=== PATIENT | male | born 1970 | race Caucasian/White ===

== ENCOUNTER 2017-08-10 07:00 | Emergency (ER) | payer MEDICARE, OTHER ==
[~2017-08-10] VITALS: Ht 177.8 cm; Wt 102.3 kg
[2017-08-10] MEDS ORDERED: FLOM5CAP PO (07:26)
[2017-08-10] MEDS ORDERED: RANI15TA PO (07:26)
[2017-08-10] MEDS ORDERED: ASPI81TA85 PO (07:26)
[2017-08-10] MEDS ORDERED: SIMV40TA2 PO (07:26)
[2017-08-10] MEDS ORDERED: PROZ10CA7 PO (07:26)
[2017-08-10] MEDS ORDERED: CLAR10CA3 PO (07:26)
[2017-08-10] MEDS ORDERED: PROG1CAP2 PO (07:26)
[2017-08-10] MEDS ORDERED: LISI-538 PO (07:26)
[2017-08-10] MEDS ORDERED: CELL500T PO (07:26)
[2017-08-10] MEDS ORDERED: LEVA1TAB PO (09:03)
[2017-08-10 09:05] VITALS: BP 129/77
== END 2017-08-10 09:16 | disposition home or self-care (01) ==
LOC: M ED 07:00
DX: N30.90 Cystitis, unspecified without hematuria (principal); I10 Essential (primary) hypertension; K21.9 Gastro-esophageal reflux disease without esophagitis; F99 Mental disorder, not otherwise specified; Z79.899 Other long term (current) drug therapy; Z79.82 Long term (current) use of aspirin; Z88.8 Allergy status to other drugs, medicaments and biological substances; Z94.0 Kidney transplant status

== ENCOUNTER → 2017-10-06 | Outpatient (REF) ==
[~2017-10-06] MED LIST: ASPI81TA85 PO; CELL500T PO; CLAR10CA3 PO; FLOM5CAP PO; LEVA1TAB PO; LISI-538 PO; PROG1CAP2 PO; PROZ10CA7 PO; RANI15TA PO; SIMV40TA2 PO
--- NOTE | 2017-10-06 14:33 | REP ---
Clinical: Pain and disability. Technique: AP and lateral views of the right tibia / fibula. Findings: Mild degenerative changes at the knee joint include minimal increased tibial os lordosis and decreased medial tibiofemoral joint space. The patient is status post intramedullary celeste through the tibia for prior distal tibial shaft fracture. Healed fracture of the proximal fibular shaft is also appreciated. Mild degenerative changes at the ankle include spurring along the medial malleolus. Ankle mortise appears intact and normal. Impression: Mild degenerative changes at the knee and ankle. Evidence for old healed fractures of the tibial and fibular diaphyses. Signed by Rudy Jiménez MD 10/06/2017 02:25 P
== END ==
LOC: M SMT 13:47
PROVIDERS: ATTEND Internal Medicine
DX: Z02.71 Encounter for disability determination (principal)

== ENCOUNTER → 2023-09-23 | Outpatient (CLI) | payer OTHER ==
[~2023-09-23] MED LIST changes: -ASPI81TA85 PO; +ASPI81TA86 PO; +FLOM0.4C39 PO; -FLOM5CAP PO; -LEVA1TAB PO; +LEVA250T13 PO; -LISI-538 PO; +LISI20TA33 PO; +PROG1CAP11 PO; -PROG1CAP2 PO; -SIMV40TA2 PO; +SIMV40TA20 PO
[2023-09-23 11:34] LABS: BASO # 0.1 10^3/uL (0.0-0.2); BASO % 0.8 % (0.0-1.0); EOS # 0.4 10^3/uL (0.0-0.5); EOS % 3.3 % (0.0-3.0); HEMATOCRIT 47.2 % (42.0-52.0); HEMOGLOBIN 15.5 g/dl (13.5-17.5); LYMPH # 2.1 10^3/uL (1.5-5.0); LYMPH % 20.1 % (24.0-44.0); MEAN CORPUSCULAR HEMOGLOBIN 30.3 pg (27.0-33.0); MEAN CORPUSCULAR HGB CONC 32.8 g/dl (32.0-36.5); MEAN CORPUSCULAR VOLUME 92.4 fl (80.0-96.0); MONO # 0.9 10^3/uL (0.0-0.8); MONO % 8.8 % (2.0-8.0); NEUTROPHILS % 66.7 % (36.0-66.0); PLATELET COUNT, AUTOMATED 293 10^3/uL (150-450); RED BLOOD COUNT 5.11 10^6/uL (4.30-6.10); WHITE BLOOD COUNT 10.5 10^3/uL (4.0-10.0)
[2023-09-23 11:39] LABS: APPEARANCE, URINE CLEAR (CLEAR); BACTERIA, URINE AUTO NEGATIVE (NEGATIVE); BILIRUBIN, URINE AUTO NEGATIVE (NEGATIVE); BLOOD, URINE BLOOD NEGATIVE (NEGATIVE); COLOR, URINE YELLOW (YELLOW); GLUCOSE, URINE (UA) AUTO NEGATIVE (NEGATIVE); KETONE, URINE AUTO NEGATIVE (NEGATIVE); LEUKOCYTE ESTERASE, URINE AUTO NEGATIVE (NEGATIVE); MUCUS, URINE SMALL (NEGATIVE); NITRITE, URINE AUTO NEGATIVE (NEGATIVE); PROTEIN, URINE AUTO NEGATIVE (NEGATIVE); RBC, URINE AUTO 1 /HPF (0-3); SQUAMOUS EPITHELIAL CELL UR AU 0 /HPF (0-6); WBC, URINE AUTO 0 /HPF (0-3)
[2023-09-23 11:50] LABS: CREATININE, URINE 138.4 MG/DL; MAU/CREAT RATIO 5.7 MCG/MG (0.0-30.0)
[2023-09-23 11:59] LABS: HEMOGLOBIN A1c 7.4 % (4.0-6.0)
[2023-09-23 12:00] LABS: ALBUMIN 3.8 G/DL (3.2-5.2); ALKALINE PHOSPHATASE 71 U/L (46-116); ALT/SGPT 34 U/L (7.0-40); AST/SGOT 21 U/L (<34); BILIRUBIN,TOTAL 0.4 MG/DL (0.3-1.2); BLOOD UREA NITROGEN 18 MG/DL (9-23); CALCIUM LEVEL 9.4 MG/DL (8.5-10.1); CARBON DIOXIDE LEVEL 31 MMOL/L (20-31); CHLORIDE LEVEL 102 MMOL/L (98-107); CREATININE FOR GFR 0.93 MG/DL (0.70-1.30); GLOMERULAR FILTRATION RATE > 60.0 (>56); GLUCOSE, FASTING 112 MG/DL (60-100); POTASSIUM SERUM 4.8 MMOL/L (3.5-5.1); SODIUM LEVEL 138 MMOL/L (136-145); TOTAL PROTEIN 7.6 G/DL (5.7-8.2)
[2023-09-23 12:03] LABS: THYROID STIMULATING HORMONE 2.015 uIU/ML (0.55-4.78)
== END ==
LOC: M LAB 10:03
PROVIDERS: ATTEND Nurse Practitioner Family
DX: Z94.0 Kidney transplant status (principal)